=== PATIENT | male | born 1945 | race Caucasian/White ===

== ENCOUNTER 2022-04-08 11:40 | Inpatient (IN) | payer OTHER ==
[~2022-04-08] VITALS: Ht 170.2 cm; Wt 67.1 kg
[2022-04-08 11:45] VITALS: BP_SYST 126
[2022-04-08 14:54] LABS: BASOPHILS # (AUTO) 0.1 K/uL (0.0-0.2); BASOPHILS % (AUTO) 1.2 % (0.0-2.0); HEMATOCRIT 42.8 % (36-54); HEMOGLOBIN 14.7 g/dL (14.0-18.0); LYMPHOCYTES # (AUTO) 0.5 K/uL (1.0-5.5); LYMPHOCYTES % (AUTO) 6.6 % (20.5-51.5); MEAN CORPUSCULAR HEMOGLOBIN 32 pg (27-31); MEAN CORPUSCULAR HGB CONC 34 % (32-36); MEAN CORPUSCULAR VOLUME 92 fL (79.0-98.0); MONOCYTES # (AUTO) 0.9 K/uL (0.0-1.0); MONOCYTES % (AUTO) 12.7 % (1.7-9.3); NEUTROPHILS # (AUTO) 5.7 K/uL (1.8-7.7); NEUTROPHILS % (AUTO) 79.5 % (40.0-70.0); PLATELET COUNT (AUTO) 179 K/uL (130-430); RED BLOOD CELL COUNT(AUTO) 4.64 MIL/uL (4.2-6.2); RED CELL DISTRIBUTION WIDTH 14.4 % (9.0-15.0); WHITE BLOOD COUNT (AUTO) 7.2 K/uL (4.8-10.8)
[2022-04-08] MEDS ORDERED: ETOMIDATE 20 MG/ 10 ML VIAL (AMIDATE) ONE (15:00)
[2022-04-08] MEDS ORDERED: SUCCINYLCHOLINE CHLORIDE 20 MG/ML(QUELICIN) ONE (15:00)
[2022-04-08 15:16] LABS: BILIRUBIN,URINE NEGATIVE (NEGATIVE); BLOOD, URINE NEGATIVE (NEGATIVE); CLARITY/URINE CLEAR (CLEAR); COLOR,URINE YELLOW (YELLOW); GLUCOSE,URINE NEGATIVE (NEGATIVE); KETONES,URINE NEGATIVE (NEGATIVE); LEUKOCYTE ESTERASE ,URINE NEGATIVE (NEGATIVE); NITRITE, URINE NEGATIVE (NEGATIVE); PH,URINE 7.5 (5.0-8.0); PROTEIN URINE NEGATIVE (NEGATIVE)
[2022-04-08] MEDS ORDERED: DILTIAZEM HCL 60 MG TABLET PO ONE (15:30)
[2022-04-08] MEDS ORDERED: dilTIAZem HCL IVP 5 MG/ML VIAL IVP ONE (15:30)
[2022-04-08 15:51] LABS: ANION GAP 9 (5-15); CALCIUM 8.9 mg/dL (8.4-11.0); CHLORIDE 103 mmol/L (98-107); CREATININE 1.11 mg/dL (0.55-1.30); GLUCOSE 108 mg/dL (70-99); UREA NITROGEN, BLOOD 14 mg/dL (8-21)
[2022-04-08 15:57] LABS: ALANINE AMINOTRANSFERASE 13 U/L (12-78); ALBUMIN 3.8 g/dL (3.4-4.8); AMYLASE 83 U/L (0-100); ASPARTATE AMINOTRANSFERASE 22 U/L (10-37); C-REACTIVE PROTEIN QUANT 1.4 mg/dL (0-0.5); LACTATE DEHYDROGENASE 190 U/L (85-227); LIPASE 62 U/L (73-393); TOTAL BILIRUBIN 1.1 mg/dL (0.0-1.0)
[2022-04-08 16:59] LABS: ACETONE, SERUM NEGATIVE (NEGATIVE)
[2022-04-08] MEDS ORDERED: CARVEDILOL 6.25 MG TABLET (COREG) PO SCH (17:23)
[2022-04-08] MEDS ORDERED: CARVEDILOL 6.25 MG TABLET (COREG) PO ONE (17:23)
[2022-04-08] MEDS ORDERED: CARVEDILOL 6.25 MG TABLET (COREG) ONE (17:24)
[2022-04-09] VITALS (12 sets, daily range): BP systolic 58–142
[2022-04-09] MEDS ORDERED: ACETAMINOPHEN 500 MG TABLET PO PRN (09:00)
[2022-04-09] MEDS ORDERED: CARVEDILOL 3.125 MG TABLET (COREG) PO SCH (09:00)
[2022-04-09] MEDS ORDERED: AMIODARONE HCL 200 MG TABLET PO ONE (09:45)
[2022-04-09] MEDS: APIXABAN 2.5 MG TABLET PO SCH (09:58)
[2022-04-09] MEDS: AMIODARONE HCL 200 MG TABLET PO SCH ×2 (13:48→22:00)
[2022-04-09] MEDS ORDERED: CARVEDILOL 3.125 MG TABLET (COREG) PO ONE (17:45)
[2022-04-09] MEDS ORDERED: NACL 0.9% 1,000 ML IV ONE ×2 (21:00→23:30)
[2022-04-09] MEDS: CARVEDILOL 12.5 MG TABLET (COREG) PO SCH (21:00)
[2022-04-09 21:29] LABS: BASOPHILS # (AUTO) 0.1 K/uL (0.0-0.2); BASOPHILS % (AUTO) 0.8 % (0.0-2.0); HEMATOCRIT 41.5 % (36-54); HEMOGLOBIN 13.8 g/dL (14.0-18.0); LYMPHOCYTES # (AUTO) 1.1 K/uL (1.0-5.5); LYMPHOCYTES % (AUTO) 11.4 % (20.5-51.5); MEAN CORPUSCULAR HEMOGLOBIN 31 pg (27-31); MEAN CORPUSCULAR HGB CONC 33 % (32-36); MEAN CORPUSCULAR VOLUME 94 fL (79.0-98.0); MONOCYTES % (AUTO) 10.7 % (1.7-9.3); NEUTROPHILS # (AUTO) 7.3 K/uL (1.8-7.7); NEUTROPHILS % (AUTO) 77.1 % (40.0-70.0); PLATELET COUNT (AUTO) 134 K/uL (130-430); RED BLOOD CELL COUNT(AUTO) 4.43 MIL/uL (4.2-6.2); RED CELL DISTRIBUTION WIDTH 14.3 % (9.0-15.0); WHITE BLOOD COUNT (AUTO) 9.4 K/uL (4.8-10.8)
[2022-04-09 21:37] LABS: ANION GAP 10 (5-15); CALCIUM 8.4 mg/dL (8.4-11.0); CHLORIDE 103 mmol/L (98-107); CREATININE 1.36 mg/dL (0.55-1.30); GLUCOSE 98 mg/dL (70-99); UREA NITROGEN, BLOOD 23 mg/dL (8-21)
[2022-04-09 21:44] LABS: ALANINE AMINOTRANSFERASE 15 U/L (12-78); ASPARTATE AMINOTRANSFERASE 50 U/L (10-37); TOTAL BILIRUBIN 1.1 mg/dL (0.0-1.0)
[2022-04-09 23:30] LABS: INR 1.2 (0.80-1.20); PROTHROMBIN TIME 12.3 SECS (9.5-12.5)
[2022-04-09] MEDS ORDERED: NOREPINEPHRINE BITARTRATE 4 MG in NS 246 ML IV PRN (23:30)
[2022-04-09] MEDS ORDERED: NOREPINEPHRINE 4 MG/4 ML VIAL IV ONE (23:50)
[2022-04-10] VITALS (24 sets, daily range): BP systolic 80–139
[2022-04-10] MEDS: APIXABAN 2.5 MG TABLET PO SCH ×3 (00:22→21:54)
[2022-04-10 01:13] LABS: BILIRUBIN,URINE NEGATIVE (NEGATIVE); BLOOD, URINE 2+ (NEGATIVE); COLOR,URINE YELLOW (YELLOW); GLUCOSE,URINE NEGATIVE (NEGATIVE); KETONES,URINE 1+ (NEGATIVE); LEUKOCYTE ESTERASE ,URINE NEGATIVE (NEGATIVE); NITRITE, URINE NEGATIVE (NEGATIVE); PROTEIN URINE TRACE (NEGATIVE)
[2022-04-10 01:19] LABS: CLARITY/URINE HAZY (CLEAR)
[2022-04-10 01:28] LABS: BACTERIA,URINE None Seen /HPF (None Seen); RBC,URINE 80-100 /HPF (0-3); WBC,URINE 0-3 /HPF (0-3)
[2022-04-10] MEDS: CARVEDILOL 12.5 MG TABLET (COREG) PO SCH ×3 (05:23→21:53)
[2022-04-10] MEDS: AMIODARONE HCL 200 MG TABLET PO SCH ×2 (06:17→21:52)
[2022-04-10 06:39] LABS: BASOPHILS % (AUTO) 0.5 % (0.0-2.0); HEMATOCRIT 40.9 % (36-54); HEMOGLOBIN 13.7 g/dL (14.0-18.0); LYMPHOCYTES # (AUTO) 1.1 K/uL (1.0-5.5); LYMPHOCYTES % (AUTO) 14.9 % (20.5-51.5); MEAN CORPUSCULAR HEMOGLOBIN 32 pg (27-31); MEAN CORPUSCULAR HGB CONC 34 % (32-36); MEAN CORPUSCULAR VOLUME 94 fL (79.0-98.0); MONOCYTES # (AUTO) 0.7 K/uL (0.0-1.0); MONOCYTES % (AUTO) 10.2 % (1.7-9.3); NEUTROPHILS # (AUTO) 5.4 K/uL (1.8-7.7); NEUTROPHILS % (AUTO) 74.4 % (40.0-70.0); PLATELET COUNT (AUTO) 128 K/uL (130-430); RED BLOOD CELL COUNT(AUTO) 4.37 MIL/uL (4.2-6.2); RED CELL DISTRIBUTION WIDTH 14.5 % (9.0-15.0); WHITE BLOOD COUNT (AUTO) 7.3 K/uL (4.8-10.8)
[2022-04-10] MEDS: NACL 0.9% 1,000 ML IV SCH ×2 (09:08→21:55)
[2022-04-10 09:49] LABS: ALANINE AMINOTRANSFERASE 19 U/L (12-78); ALBUMIN 2.8 g/dL (3.4-4.8); ANION GAP 12 (5-15); ASPARTATE AMINOTRANSFERASE 62 U/L (10-37); CHLORIDE 107 mmol/L (98-107); CREATININE 1.13 mg/dL (0.55-1.30); GLUCOSE 98 mg/dL (70-99); HDL CHOLESTEROL 57 mg/dL (>45); THYROID STIMULATING HORMONE 0.65 uIu/mL (0.34-4.82); TOTAL BILIRUBIN 0.9 mg/dL (0.0-1.0); TRIGLYCERIDES 47 mg/dL (30-150); UREA NITROGEN, BLOOD 24 mg/dL (8-21)
[2022-04-10] MEDS: DEXAMETHASONE SOD PHOSPHATE 10 MG/ML VIAL IVP SCH (11:00)
[2022-04-10 12:11] LABS: C-REACTIVE PROTEIN QUANT 10.5 mg/dL (0-0.5)
[2022-04-10] MEDS: cefTRIAXone 1 GM in D5W 50 ML IV SCH (13:17)
[2022-04-10 15:30] LABS: CHOLESTEROL 155 mg/dL (<200)
[2022-04-10] MEDS: ASCORBIC ACID 500 MG TABLET PO SCH (21:53)
[2022-04-11] VITALS (11 sets, daily range): BP systolic 90–129
[2022-04-11] MEDS: AMIODARONE HCL 200 MG TABLET PO SCH ×2 (08:08→21:00)
[2022-04-11] MEDS: ASCORBIC ACID 500 MG TABLET PO SCH ×2 (08:09→21:12)
[2022-04-11] MEDS: CHOLECALCIFEROL (VITAMIN D3) 5,000 UNIT TABLET PO SCH (08:09)
[2022-04-11] MEDS: APIXABAN 2.5 MG TABLET PO SCH ×2 (08:09→21:16)
[2022-04-11 09:30] LABS: BASOPHILS % (AUTO) 0.4 % (0.0-2.0); HEMATOCRIT 39.5 % (36-54); HEMOGLOBIN 13.7 g/dL (14.0-18.0); LYMPHOCYTES # (AUTO) 1.1 K/uL (1.0-5.5); LYMPHOCYTES % (AUTO) 10.7 % (20.5-51.5); MEAN CORPUSCULAR HEMOGLOBIN 31 pg (27-31); MEAN CORPUSCULAR HGB CONC 35 % (32-36); MEAN CORPUSCULAR VOLUME 91 fL (79.0-98.0); MONOCYTES # (AUTO) 0.5 K/uL (0.0-1.0); MONOCYTES % (AUTO) 4.8 % (1.7-9.3); NEUTROPHILS # (AUTO) 8.8 K/uL (1.8-7.7); NEUTROPHILS % (AUTO) 84.1 % (40.0-70.0); PLATELET COUNT (AUTO) 152 K/uL (130-430); RED BLOOD CELL COUNT(AUTO) 4.36 MIL/uL (4.2-6.2); RED CELL DISTRIBUTION WIDTH 14.2 % (9.0-15.0); WHITE BLOOD COUNT (AUTO) 10.4 K/uL (4.8-10.8)
[2022-04-11] MEDS: DEXAMETHASONE SOD PHOSPHATE 10 MG/ML VIAL IVP SCH (10:53)
[2022-04-11] MEDS: NACL 0.9% 1,000 ML IV SCH ×2 (10:53→17:16)
[2022-04-11] MEDS: FLUCONAZOLE 100 mg/ NS 50 ML IV SCH (12:29)
[2022-04-11] MEDS: cefTRIAXone 1 GM in D5W 50 ML IV SCH (14:18)
[2022-04-11 14:23] LABS: ALANINE AMINOTRANSFERASE 19 U/L (12-78); ALBUMIN 2.5 g/dL (3.4-4.8); ANION GAP 10 (5-15); ASPARTATE AMINOTRANSFERASE 55 U/L (10-37); CALCIUM 8.2 mg/dL (8.4-11.0); CHLORIDE 108 mmol/L (98-107); CREATININE 0.79 mg/dL (0.55-1.30); GLUCOSE 163 mg/dL (70-99); TOTAL BILIRUBIN 0.7 mg/dL (0.0-1.0); UREA NITROGEN, BLOOD 24 mg/dL (8-21)
[2022-04-11] MEDS: CARVEDILOL 12.5 MG TABLET (COREG) PO SCH (21:00)
[2022-04-12] VITALS: BP_SYST 113
[2022-04-12] MEDS: NACL 0.9% 1,000 ML IV SCH ×3 (02:53→16:32)
[2022-04-12 08:00] VITALS: BP_SYST 115
[2022-04-12 08:41] LABS: ALANINE AMINOTRANSFERASE 29 U/L (12-78); ALBUMIN 2.7 g/dL (3.4-4.8); ANION GAP 9 (5-15); ASPARTATE AMINOTRANSFERASE 68 U/L (10-37); C-REACTIVE PROTEIN QUANT 6.2 mg/dL (0-0.5); CALCIUM 8.5 mg/dL (8.4-11.0); CHLORIDE 110 mmol/L (98-107); CREATININE 0.93 mg/dL (0.55-1.30); GLUCOSE 129 mg/dL (70-99); TOTAL BILIRUBIN 0.6 mg/dL (0.0-1.0); UREA NITROGEN, BLOOD 22 mg/dL (8-21)
[2022-04-12] MEDS: CHOLECALCIFEROL (VITAMIN D3) 5,000 UNIT TABLET PO SCH (09:37)
[2022-04-12] MEDS: AMIODARONE HCL 200 MG TABLET PO SCH ×2 (09:38→20:59)
[2022-04-12] MEDS: ASCORBIC ACID 500 MG TABLET PO SCH ×2 (09:38→20:59)
[2022-04-12] MEDS: CARVEDILOL 12.5 MG TABLET (COREG) PO SCH ×2 (09:38→20:59)
[2022-04-12] MEDS: APIXABAN 2.5 MG TABLET PO SCH ×2 (09:47→20:59)
[2022-04-12] MEDS: DEXAMETHASONE SOD PHOSPHATE 10 MG/ML VIAL IVP SCH (11:42)
[2022-04-12] MEDS: FLUCONAZOLE 100 mg/ NS 50 ML IV SCH (11:42)
[2022-04-12] MEDS: cefTRIAXone 1 GM in D5W 50 ML IV SCH (11:44)
[2022-04-12 12:01] VITALS: BP_SYST 110
[2022-04-13 00:19] VITALS: BP_SYST 95
[2022-04-13] MEDS: NACL 0.9% 1,000 ML IV SCH ×3 (00:54→19:43)
[2022-04-13 06:43] LABS: BASOPHILS % (AUTO) 0.1 % (0.0-2.0); HEMATOCRIT 37.1 % (36-54); HEMOGLOBIN 12.5 g/dL (14.0-18.0); LYMPHOCYTES # (AUTO) 0.7 K/uL (1.0-5.5); MEAN CORPUSCULAR HEMOGLOBIN 31 pg (27-31); MEAN CORPUSCULAR HGB CONC 34 % (32-36); MEAN CORPUSCULAR VOLUME 92 fL (79.0-98.0); MONOCYTES # (AUTO) 0.4 K/uL (0.0-1.0); MONOCYTES % (AUTO) 4.1 % (1.7-9.3); NEUTROPHILS # (AUTO) 8.4 K/uL (1.8-7.7); NEUTROPHILS % (AUTO) 88.8 % (40.0-70.0); PLATELET COUNT (AUTO) 160 K/uL (130-430); RED BLOOD CELL COUNT(AUTO) 4.03 MIL/uL (4.2-6.2); RED CELL DISTRIBUTION WIDTH 14.3 % (9.0-15.0); WHITE BLOOD COUNT (AUTO) 9.5 K/uL (4.8-10.8)
[2022-04-13 08:01] VITALS: BP_SYST 93
[2022-04-13] MEDS: AMIODARONE HCL 200 MG TABLET PO SCH ×2 (09:42→21:22)
[2022-04-13] MEDS: ASCORBIC ACID 500 MG TABLET PO SCH ×2 (09:42→21:21)
[2022-04-13] MEDS: CHOLECALCIFEROL (VITAMIN D3) 5,000 UNIT TABLET PO SCH (09:42)
[2022-04-13] MEDS: CARVEDILOL 12.5 MG TABLET (COREG) PO SCH ×2 (09:43→21:22)
[2022-04-13] MEDS: APIXABAN 2.5 MG TABLET PO SCH ×2 (09:46→21:20)
[2022-04-13 11:05] LABS: ALANINE AMINOTRANSFERASE 31 U/L (12-78); ALBUMIN 2.3 g/dL (3.4-4.8); ANION GAP 9 (5-15); ASPARTATE AMINOTRANSFERASE 70 U/L (10-37); CALCIUM 8.3 mg/dL (8.4-11.0); CHLORIDE 109 mmol/L (98-107); CREATININE 0.71 mg/dL (0.55-1.30); GLUCOSE 152 mg/dL (70-99); TOTAL BILIRUBIN 0.4 mg/dL (0.0-1.0); UREA NITROGEN, BLOOD 19 mg/dL (8-21)
[2022-04-13 11:41] VITALS: BP_SYST 98
[2022-04-13] MEDS: FLUCONAZOLE 100 mg/ NS 50 ML IV SCH (13:28)
[2022-04-13] MEDS: cefTRIAXone 1 GM in D5W 50 ML IV SCH (13:29)
[2022-04-13 16:52] VITALS: BP_SYST 103
[2022-04-13 20:30] VITALS: BP_SYST 111
[2022-04-14 00:50] VITALS: BP_SYST 110
[2022-04-14] MEDS: NACL 0.9% 1,000 ML IV SCH ×4 (01:59→21:13)
[2022-04-14 07:38] LABS: BASOPHILS % (AUTO) 0.1 % (0.0-2.0); HEMATOCRIT 38.4 % (36-54); HEMOGLOBIN 12.9 g/dL (14.0-18.0); LYMPHOCYTES % (AUTO) 13.9 % (20.5-51.5); MEAN CORPUSCULAR HEMOGLOBIN 31 pg (27-31); MEAN CORPUSCULAR HGB CONC 34 % (32-36); MEAN CORPUSCULAR VOLUME 93 fL (79.0-98.0); MONOCYTES # (AUTO) 0.6 K/uL (0.0-1.0); MONOCYTES % (AUTO) 8.2 % (1.7-9.3); NEUTROPHILS # (AUTO) 5.8 K/uL (1.8-7.7); NEUTROPHILS % (AUTO) 77.8 % (40.0-70.0); PLATELET COUNT (AUTO) 154 K/uL (130-430); RED BLOOD CELL COUNT(AUTO) 4.15 MIL/uL (4.2-6.2); RED CELL DISTRIBUTION WIDTH 14.2 % (9.0-15.0); WHITE BLOOD COUNT (AUTO) 7.4 K/uL (4.8-10.8)
[2022-04-14 07:53] LABS: ALANINE AMINOTRANSFERASE 35 U/L (12-78); ALBUMIN 2.4 g/dL (3.4-4.8); ANION GAP 6 (5-15); ASPARTATE AMINOTRANSFERASE 51 U/L (10-37); C-REACTIVE PROTEIN QUANT 1.9 mg/dL (0-0.5); CALCIUM 8.3 mg/dL (8.4-11.0); CHLORIDE 110 mmol/L (98-107); CREATININE 0.86 mg/dL (0.55-1.30); ERYTHROCYTE SEDIMENTATION RATE 2 MM/HR (0-15); GLUCOSE 102 mg/dL (70-99); TOTAL BILIRUBIN 0.4 mg/dL (0.0-1.0); UREA NITROGEN, BLOOD 17 mg/dL (8-21)
[2022-04-14 08:01] VITALS: BP_SYST 93
[2022-04-14] MEDS: ASCORBIC ACID 500 MG TABLET PO SCH ×2 (09:21→21:10)
[2022-04-14] MEDS: CHOLECALCIFEROL (VITAMIN D3) 5,000 UNIT TABLET PO SCH (09:22)
[2022-04-14] MEDS: CARVEDILOL 12.5 MG TABLET (COREG) PO SCH ×2 (09:22→21:11)
[2022-04-14] MEDS: AMIODARONE HCL 200 MG TABLET PO SCH ×2 (09:22→21:10)
[2022-04-14] MEDS: APIXABAN 2.5 MG TABLET PO SCH ×2 (09:32→21:12)
[2022-04-14 11:53] VITALS: BP_SYST 96
[2022-04-14] MEDS: FLUCONAZOLE 100 mg/ NS 50 ML IV SCH (12:32)
[2022-04-14] MEDS: cefTRIAXone 1 GM in D5W 50 ML IV SCH (12:33)
[2022-04-14 17:23] VITALS: BP_SYST 103
[2022-04-14 20:16] VITALS: BP_SYST 138
[2022-04-15 01:25] VITALS: BP_SYST 98
[2022-04-15 07:08] LABS: EOSINOPHILS # (AUTO) 0.1 K/uL (0.0-0.4); EOSINOPHILS % (AUTO) 1.6 % (0.0-4.0); HEMATOCRIT 35.8 % (36-54); HEMOGLOBIN 12.2 g/dL (14.0-18.0); LYMPHOCYTES # (AUTO) 1.8 K/uL (1.0-5.5); LYMPHOCYTES % (AUTO) 31.1 % (20.5-51.5); MEAN CORPUSCULAR HEMOGLOBIN 31 pg (27-31); MEAN CORPUSCULAR HGB CONC 34 % (32-36); MEAN CORPUSCULAR VOLUME 91 fL (79.0-98.0); MONOCYTES # (AUTO) 0.6 K/uL (0.0-1.0); MONOCYTES % (AUTO) 10.4 % (1.7-9.3); NEUTROPHILS # (AUTO) 3.3 K/uL (1.8-7.7); NEUTROPHILS % (AUTO) 56.9 % (40.0-70.0); PLATELET COUNT (AUTO) 157 K/uL (130-430); RED BLOOD CELL COUNT(AUTO) 3.93 MIL/uL (4.2-6.2); RED CELL DISTRIBUTION WIDTH 14.5 % (9.0-15.0); WHITE BLOOD COUNT (AUTO) 5.7 K/uL (4.8-10.8)
[2022-04-15 07:54] LABS: ALANINE AMINOTRANSFERASE 40 U/L (12-78); ALBUMIN 2.2 g/dL (3.4-4.8); ANION GAP 6 (5-15); ASPARTATE AMINOTRANSFERASE 46 U/L (10-37); CALCIUM 7.6 mg/dL (8.4-11.0); CHLORIDE 112 mmol/L (98-107); CREATININE 0.93 mg/dL (0.55-1.30); GLUCOSE 86 mg/dL (70-99); TOTAL BILIRUBIN 0.4 mg/dL (0.0-1.0); UREA NITROGEN, BLOOD 16 mg/dL (8-21)
[2022-04-15 08:00] VITALS: BP_SYST 118
[2022-04-15 08:46] LABS: ERYTHROCYTE SEDIMENTATION RATE < 1 MM/HR (0-15)
[2022-04-15] MEDS: ASCORBIC ACID 500 MG TABLET PO SCH ×2 (09:26→23:09)
[2022-04-15] MEDS: CHOLECALCIFEROL (VITAMIN D3) 5,000 UNIT TABLET PO SCH (09:26)
[2022-04-15] MEDS: AMIODARONE HCL 200 MG TABLET PO SCH ×2 (09:34→23:16)
[2022-04-15] MEDS: CARVEDILOL 12.5 MG TABLET (COREG) PO SCH ×2 (09:35→23:11)
[2022-04-15] MEDS: APIXABAN 2.5 MG TABLET PO SCH ×2 (09:49→23:15)
[2022-04-15] MEDS: NACL 0.9% 1,000 ML IV SCH ×2 (09:52→17:24)
[2022-04-15 10:24] VITALS: BP_SYST 122
[2022-04-15] MEDS: FLUCONAZOLE 100 mg/ NS 50 ML IV SCH (13:56)
[2022-04-15] MEDS: cefTRIAXone 1 GM in D5W 50 ML IV SCH (13:57)
[2022-04-15 15:57] VITALS: BP_SYST 116
[2022-04-16 00:58] VITALS: BP_SYST 109
[2022-04-16] MEDS: NACL 0.9% 1,000 ML IV SCH ×2 (01:30→09:30)
[2022-04-16 08:00] VITALS: BP_SYST 127
[2022-04-16 08:29] LABS: BASOPHILS % (AUTO) 0.1 % (0.0-2.0); EOSINOPHILS # (AUTO) 0.3 K/uL (0.0-0.4); HEMOGLOBIN 13.5 g/dL (14.0-18.0); LYMPHOCYTES # (AUTO) 1.6 K/uL (1.0-5.5); LYMPHOCYTES % (AUTO) 28.4 % (20.5-51.5); MEAN CORPUSCULAR HEMOGLOBIN 31 pg (27-31); MEAN CORPUSCULAR HGB CONC 34 % (32-36); MEAN CORPUSCULAR VOLUME 92 fL (79.0-98.0); MONOCYTES # (AUTO) 0.7 K/uL (0.0-1.0); MONOCYTES % (AUTO) 11.6 % (1.7-9.3); NEUTROPHILS # (AUTO) 3.1 K/uL (1.8-7.7); NEUTROPHILS % (AUTO) 53.9 % (40.0-70.0); PLATELET COUNT (AUTO) 181 K/uL (130-430); RED BLOOD CELL COUNT(AUTO) 4.36 MIL/uL (4.2-6.2); RED CELL DISTRIBUTION WIDTH 14.4 % (9.0-15.0); WHITE BLOOD COUNT (AUTO) 5.7 K/uL (4.8-10.8)
[2022-04-16 08:41] LABS: ANION GAP 8 (5-15); C-REACTIVE PROTEIN QUANT 0.9 mg/dL (0-0.5); CHLORIDE 108 mmol/L (98-107); CREATININE 0.94 mg/dL (0.55-1.30); GLUCOSE 78 mg/dL (70-99); UREA NITROGEN, BLOOD 11 mg/dL (8-21)
[2022-04-16] MEDS: CARVEDILOL 12.5 MG TABLET (COREG) PO SCH (10:26)
[2022-04-16] MEDS: AMIODARONE HCL 200 MG TABLET PO SCH (10:26)
[2022-04-16] MEDS: ASCORBIC ACID 500 MG TABLET PO SCH (10:27)
[2022-04-16] MEDS: CHOLECALCIFEROL (VITAMIN D3) 5,000 UNIT TABLET PO SCH (10:27)
[2022-04-16] MEDS: APIXABAN 2.5 MG TABLET PO SCH (10:27)
[2022-04-16 10:58] LABS: ERYTHROCYTE SEDIMENTATION RATE 2 MM/HR (0-15)
[2022-04-16 11:41] VITALS: BP_SYST 130
[2022-04-16] MEDS ORDERED: CEPH250C PO (12:02)
[2022-04-16] MEDS ORDERED: CHOL500013 PO (12:02)
[2022-04-16] MEDS ORDERED: AMIO200T61 PO (12:02)
[2022-04-16] MEDS ORDERED: APIX2.5T PO (12:02)
[2022-04-16] MEDS ORDERED: COR12.5 PO (12:02)
[2022-04-16] MEDS ORDERED: ASC500 PO (12:02)
[2022-04-16] MEDS ORDERED: FLUC100T41 PO (12:04)
== END 2022-04-16 12:30 | disposition home or self-care (01) | DRG 871 ==
LOC: SED 11:40 → STU 16:55 → SIC 04-09 23:30 → STU 04-11 10:17 → SMU 04-15 12:23
PROVIDERS: ADMIT Specialist; ATTEND Specialist
PROC: 05HY33Z Insertion of Infusion Device into Upper Vein, Percutaneous Approach (ICD-10-PCS; 2022-04-10)
PROC: XW033E5 Introduction of Remdesivir Anti-infective into Peripheral Vein, Percutaneous Approach, New Technology Group 5 (ICD-10-PCS; principal; 2022-04-11)
DX: A41.9 Sepsis, unspecified organism (principal); E43 Unspecified severe protein-calorie malnutrition; G92.8 Other toxic encephalopathy; U07.1 COVID-19; J12.82 Pneumonia due to coronavirus disease 2019; R65.21 Severe sepsis with septic shock; I48.91 Unspecified atrial fibrillation; D64.9 Anemia, unspecified; E83.51 Hypocalcemia; E88.09 Other disorders of plasma-protein metabolism, not elsewhere classified; G89.29 Other chronic pain; I10 Essential (primary) hypertension; M54.9 Dorsalgia, unspecified; R73.9 Hyperglycemia, unspecified; Z79.01 Long term (current) use of anticoagulants; Z79.899 Other long term (current) drug therapy; Z78.9 Other specified health status; Z68.23 Body mass index [BMI] 23.0-23.9, adult
CPT/HCPCS: 36415; 36600; 70450-TC; 71045; 76376; 80048; 80053; 80061; 81000; 81003; 82009; 82150; 82803-TC; 82962; 83605; 83615; 83690; 83880; 84443; 84484; 85025; 85379; 85610-TC; 85651-TC; 85730-TC; 86140; 87040; 87086; 93005; 93306; 96374; 99285; G0378; J0330; J0696; J1100; J1450; J3490; J7050; J7060

== ENCOUNTER 2022-12-01 21:27 | Emergency (ER) | payer OTHER ==
[~2022-12-01] VITALS: Ht 170.2 cm; Wt 63.5 kg
[~2022-12-01 21:27] MED LIST: AMIO200T68 PO; APIX2.5T PO; ASC500 PO; CEPH250C PO; CHOL500013 PO; COR12.5 PO; FLUC100T41 PO
[2022-12-01 21:36] VITALS: BP_SYST 110; BP_SYST 176; PULSE 58; PULSE 71; RESP 12; RESP 16; TEMP 96.1; TEMP 98.1; O2SAT 95; O2SAT 99
[2022-12-01 22:20] LABS: BASOPHILS # (AUTO) 0.1 K/uL (0.0-0.2); EOSINOPHILS # (AUTO) 0.1 K/uL (0.0-0.4)
[2022-12-01 22:29] LABS: BASOPHILS % (AUTO) 1.2 % (0.0-2.0); EOSINOPHILS % (AUTO) 2.2 % (0.0-4.0); HEMATOCRIT 35.1 % (36-54); HEMOGLOBIN 12.2 g/dL (14.0-18.0); LYMPHOCYTES # (AUTO) 0.3 K/uL (1.0-5.5); LYMPHOCYTES % (AUTO) 4.6 % (20.5-51.5); MEAN CORPUSCULAR HEMOGLOBIN 33 pg (27-31); MEAN CORPUSCULAR HGB CONC 35 % (32-36); MEAN CORPUSCULAR VOLUME 95 fL (79.0-98.0); MONOCYTES # (AUTO) 0.4 K/uL (0.0-1.0); MONOCYTES % (AUTO) 7.3 % (1.7-9.3); NEUTROPHILS % (AUTO) 84.7 % (40.0-70.0); PLATELET COUNT (AUTO) 147 K/uL (130-430); WHITE BLOOD COUNT (AUTO) 5.9 K/uL (4.8-10.8)
[2022-12-01 22:54] LABS: ANION GAP 7 (5-15); CALCIUM 7.4 mg/dL (8.4-11.0); CARBON DIOXIDE 26 mmol/L (23-29); CHLORIDE 104 mmol/L (98-107); CREATININE 1.23 mg/dL (0.55-1.30); GLUCOSE 111 mg/dL (74-106); SODIUM SERUM 137 mmol/L (136-145); UREA NITROGEN, BLOOD 15 mg/dL (8-21)
[2022-12-01 23:01] LABS: ALANINE AMINOTRANSFERASE 26 U/L (12-78); ALBUMIN 2.9 g/dL (3.4-4.8); ASPARTATE AMINOTRANSFERASE 33 U/L (10-37); TOTAL BILIRUBIN 0.8 mg/dL (0.0-1.0); TOTAL PROTEIN, SERUM 5.6 g/dL (6.4-8.3)
== END 2022-12-01 22:30 | disposition left against medical advice (07) ==
LOC: SED 21:27
DX: S00.81XA Abrasion of other part of head, initial encounter (principal); R53.1 Weakness; I10 Essential (primary) hypertension; E78.5 Hyperlipidemia, unspecified; R73.9 Hyperglycemia, unspecified; Z79.899 Other long term (current) drug therapy; W22.8XXA Striking against or struck by other objects, initial encounter; Y93.89 Activity, other specified; Y92.89 Other specified places as the place of occurrence of the external cause; Y99.8 Other external cause status
CPT/HCPCS: 36415; 80053; 82962; 83880; 84484; 85025; 93005; 99284